=== PATIENT | female | born 2000 | race Caucasian/White ===

== ENCOUNTER 2025-05-27 12:19 | Inpatient (IN) ==
[2025-05-27] MEDS ORDERED: IOPAMIDOL 100 ML BOTTLE IV ONE (12:20)
[2025-05-27] MEDS: 0.9 % SODIUM CHLORIDE 1,000 ML IV ONE (13:37)
[2025-05-27] MEDS: FAMOTIDINE/PF 20 MG/2 ML VIAL IV ONE (13:37)
[2025-05-27] MEDS: LORazepam 2 MG/ML VIAL IV ONE (13:39)
[2025-05-27 13:47] LABS: Bacteria,Urine Few /hpf (0); Bilirubin,Urine NEGATIVE (Negative); Color,Urine LT. YELLOW; Glucose,Urine (UA) NEGATIVE (Negative); Ketones,Urine >=80 mg/dL (Negative); Leukocyte Esterase,Urine NEGATIVE /uL (Negative); Mucus,Urine Few /hpf; PH,Urine 6.0 (5.0-9.0); Protein,Urine TRACE mg/dL (Negative); Specific Gravity,Urine >= 1.030 (1.000-1.035); Urobilinogen,Urine 0.2 mg/dL
[2025-05-27 14:02] LABS: Basophils # (Auto) 0.08 K/mcL (0.00-0.30); Basophils % (Auto) 0.5 % (0.0-2.0); Eosinophils # (Auto) 0 K/mcL (0.00-0.70); Eosinophils % (Auto) 0 % (0.0-7.0); Hematocrit 44.1 % (34.1-44.9); Hemoglobin 14.5 g/dL (11.2-15.7); Lymphocytes # (Auto) 2.50 K/mcL (1.50-4.80); Lymphocytes % (Auto) 16.4 % (15.5-49.0); Mean Corpuscular HGB Conc 32.9 g/dL (31.0-36.0); Monocytes # (Auto) 0.41 K/mcL (0.10-0.90); Monocytes % (Auto) 2.7 % (1.0-12.0); Neutrophils % (Auto) 80.2 % (38.0-78.0); Platelet Count 368 K/mcL (140-440); RBC 4.57 M/mcL (3.59-5.38); WBC 15.3 K/mcL (4.5-11.0)
[2025-05-27] MEDS: PANTOPRAZOLE 40 MG VIAL IV ONE (14:21)
[2025-05-27 14:25] LABS: Alcohol,Blood 0.155 g/dL (<0.010)
[2025-05-27 14:25] LABS: ALT/SGPT 18 U/L (<40); AST/SGOT 37 U/L (<32); Albumin 4.9 gm/dL (3.2-5.2); Albumin/Globulin Ratio 1.4 (1.0-2.3); Alkaline Phosphatase 115 U/L (39-117); Anion Gap 29.0 (8.0-16.0); Bilirubin,Total 1.0 mg/dL (0.1-1.0); Blood Urea Nitrogen 13 mg/dL (6-20); Calcium 9.4 mg/dL (8.6-10.4); Carbon Dioxide 12 mmol/L (22-30); Chloride 92 mmol/L (96-108); Globulin 3.6 gm/dL (2.2-3.7); Glucose 67 mg/dL (70-105); Potassium 3.8 mmol/L (3.3-5.1); Sodium 133 mmol/L (133-145)
[2025-05-27] MEDS: THIAMINE 100 MG in 0.9 % SODIUM CHLORIDE 50 ML IV ONE ×2 (14:31→15:25)
[2025-05-27] MEDS: FOLIC ACID 1 MG TABLET PO ONE (14:31)
[2025-05-27] MEDS ORDERED: DEXTROSE 5%-LR 1,000 ML IV SCH (14:45)
[2025-05-27] MEDS: DEXTROSE 5%-LR 1,000 ML IV SCH (15:28)
[2025-05-27] MEDS: LACTATED RINGERS 1,000 ML IV ONE ×2 (15:28)
[2025-05-27] MEDS: POTASSIUM CHLORIDE 20 MEQ, MAGNESIUM SULFATE 16.24 MEQ, MVI, ADULT NO.4 WITH VIT K 10 M... IV SCH (16:58)
[2025-05-27] MEDS ORDERED: ONDANSETRON 4 MG/2 ML VIAL IV PRN (17:18)
[2025-05-27] MEDS ORDERED: LORazepam 2 MG/ML VIAL IV PRN ×2 (17:18)
[2025-05-27] MEDS ORDERED: IPRATROPIUM/ALBUTEROL 3 ML AMPUL.NEB NEB PRN (17:18)
[2025-05-27] MEDS ORDERED: BISACODYL 10 MG SUPP.RECT PR PRN (17:18)
[2025-05-27 18:42] LABS: HCG,Serum Negative
[2025-05-27] MEDS: POLYETHYLENE GLYCOL 3350 17 GM PACKET PO PRN (20:03)
[2025-05-27] MEDS: 0.9 % SODIUM CHLORIDE 10 ML SYRINGE IV SCH (20:04)
[2025-05-27] MEDS: MELATONIN 3 MG TABLET PO PRN (20:04)
[2025-05-27] MEDS: LORazepam 2 MG/ML VIAL IV PRN (22:01)
[2025-05-27] MEDS: 0.9 % SODIUM CHLORIDE 1,000 ML IV SCH (22:02)
[2025-05-28 07:27] LABS: Basophils # (Auto) 0.02 K/mcL (0.00-0.30); Basophils % (Auto) 0.3 % (0.0-2.0); Eosinophils # (Auto) 0.16 K/mcL (0.00-0.70); Eosinophils % (Auto) 2.4 % (0.0-7.0); Hematocrit 38.4 % (34.1-44.9); Hemoglobin 12.4 g/dL (11.2-15.7); Lymphocytes # (Auto) 1.96 K/mcL (1.50-4.80); Lymphocytes % (Auto) 29.0 % (15.5-49.0); Mean Corpuscular HGB Conc 32.3 g/dL (31.0-36.0); Monocytes # (Auto) 0.32 K/mcL (0.10-0.90); Monocytes % (Auto) 4.7 % (1.0-12.0); Neutrophils % (Auto) 63.5 % (38.0-78.0); Platelet Count 223 K/mcL (140-440); RBC 3.89 M/mcL (3.59-5.38); WBC 6.8 K/mcL (4.5-11.0)
[2025-05-28 07:53] LABS: Phosphorous 1.9 mg/dL (2.5-4.5)
[2025-05-28 07:57] LABS: ALT/SGPT 13 U/L (<40); AST/SGOT 30 U/L (<32); Albumin 3.7 gm/dL (3.2-5.2); Albumin/Globulin Ratio 1.5 (1.0-2.3); Alkaline Phosphatase 77 U/L (39-117); Anion Gap 9.0 (8.0-16.0); Bilirubin,Total 1.1 mg/dL (0.1-1.0); Blood Urea Nitrogen 9 mg/dL (6-20); Calcium 8.4 mg/dL (8.6-10.4); Carbon Dioxide 21 mmol/L (22-30); Chloride 104 mmol/L (96-108); Globulin 2.5 gm/dL (2.2-3.7); Glucose 75 mg/dL (70-105); Potassium 4.3 mmol/L (3.3-5.1); Sodium 134 mmol/L (133-145)
[2025-05-28] MEDS: PANTOPRAZOLE 40 MG VIAL IV SCH (08:13)
[2025-05-28] MEDS: ACETAMINOPHEN 325 MG TABLET PO PRN (08:14)
[2025-05-28] MEDS ORDERED: POLYETHYLENE GLYCOL 3350 17 GM PACKET PO PRN (11:29)
[2025-05-28] MEDS: POTASSIUM PHOSPHATE 20 MEQ in DEXTROSE 5% IN WATER 250 ML IV SCH (12:02)
[2025-05-28 12:08] LABS: Barbiturate Screen,Urine None detected; Benzodiazepines Screen,Urine None detected; Fentanyl, Urine Screen None Detected; Opiate Screen,Urine None detected; Oxycodone, Urine Screen None detected; Phencyclidine Screen,Urine None detected
[2025-05-28] MEDS: LACTULOSE 20 GM/30 ML ORAL.SOL PO PRN (12:13)
[2025-05-28] MEDS ORDERED: DIAZEPAM 10 MG/2 ML SYRINGE IV PRN (17:34)
[2025-05-28] MEDS: DEXMEDETOMIDINE 400 MCG in PREMIX 1 BAG IV SCH (17:44)
[2025-05-28] MEDS: DEXMEDETOMIDINE 100 ML IV ONE (17:45)
[2025-05-28] MEDS: DIAZEPAM 10 MG/2 ML SYRINGE IV PRN (17:46)
[2025-05-28] MEDS: DOCUSATE SODIUM 100 MG CAPSULE PO SCH (21:07)
[2025-05-28] MEDS: SENNOSIDES/DOCUSATE SODIUM 1 TAB TABLET PO SCH (21:07)
[2025-05-29 06:45] LABS: Basophils # (Auto) 0.03 K/mcL (0.00-0.30); Basophils % (Auto) 0.5 % (0.0-2.0); Eosinophils # (Auto) 0.41 K/mcL (0.00-0.70); Eosinophils % (Auto) 6.8 % (0.0-7.0); Hematocrit 38.4 % (34.1-44.9); Hemoglobin 12.5 g/dL (11.2-15.7); Lymphocytes # (Auto) 1.96 K/mcL (1.50-4.80); Lymphocytes % (Auto) 32.5 % (15.5-49.0); Mean Corpuscular HGB Conc 32.6 g/dL (31.0-36.0); Monocytes # (Auto) 0.25 K/mcL (0.10-0.90); Monocytes % (Auto) 4.1 % (1.0-12.0); Neutrophils % (Auto) 56.1 % (38.0-78.0); Platelet Count 200 K/mcL (140-440); RBC 3.89 M/mcL (3.59-5.38); WBC 6.0 K/mcL (4.5-11.0)
[2025-05-29 07:00] LABS: ALT/SGPT 12 U/L (<40); AST/SGOT 24 U/L (<32); Albumin 3.7 gm/dL (3.2-5.2); Albumin/Globulin Ratio 1.5 (1.0-2.3); Alkaline Phosphatase 71 U/L (39-117); Anion Gap 8.0 (8.0-16.0); Bilirubin,Total 0.6 mg/dL (0.1-1.0); Blood Urea Nitrogen 9 mg/dL (6-20); Calcium 8.7 mg/dL (8.6-10.4); Carbon Dioxide 23 mmol/L (22-30); Chloride 106 mmol/L (96-108); Globulin 2.5 gm/dL (2.2-3.7); Glucose 111 mg/dL (70-105); Potassium 3.9 mmol/L (3.3-5.1); Sodium 137 mmol/L (133-145)
[2025-05-29 07:01] LABS: Phosphorous 2.4 mg/dL (2.5-4.5)
== END 2025-05-29 10:52 | disposition left against medical advice (07) | DRG 894 ==
LOC: ED 12:19 → ICU 17:17
PROVIDERS: ADMIT Internal Medicine; ATTEND Internal Medicine